=== PATIENT | female | born 1975 | race Two or more races ===

== ENCOUNTER 2020-05-23 05:40 | Day surgery (SDC) | payer OTHER ==
[~2020-05-23 05:40] MED LIST: ALDACTONE25 MG PO; NORVASC5 MG PO; SYNTHROID88 MCG PO
== END 2020-05-23 13:30 | disposition home or self-care (01) ==
LOC: CIR.AMB 05:40
PROVIDERS: ATTEND Obstetrics & Gynecology
DX: N84.0 Polyp of corpus uteri (principal)

== ENCOUNTER 2021-12-02 11:15 | Inpatient (IN) | payer OTHER ==
[~2021-12-02] VITALS: Ht 157.5 cm; Wt 57.2 kg
[2021-12-02] MEDS ORDERED: TOPROL XL25 M1 PO (13:47)
[2021-12-02] MEDS ORDERED: CHILDREN'S ASPI81 MG PO (13:48)
== END 2021-12-06 12:50 | disposition home or self-care (01) | DRG 743 ==
LOC: OB/GYN 12-04 06:00 → O/R 12-04 06:00 → OB/GYN 12-04 07:00
PROVIDERS: Surgery; ADMIT Obstetrics & Gynecology; ATTEND Obstetrics & Gynecology
PROC: 0UT5FZZ Resection of Right Fallopian Tube, Via Natural or Artificial Opening With Percutaneous Endoscopic Assistance (ICD-10-PCS; 2021-12-04)
PROC: 0UT9FZZ Resection of Uterus, Via Natural or Artificial Opening With Percutaneous Endoscopic Assistance (ICD-10-PCS; principal; 2021-12-04 07:00)
PROC: 0UT0FZZ Resection of Right Ovary, Via Natural or Artificial Opening With Percutaneous Endoscopic Assistance (ICD-10-PCS; 2021-12-04 07:00)
DX: N72 Inflammatory disease of cervix uteri (principal); D26.1 Other benign neoplasm of corpus uteri; N83.8 Other noninflammatory disorders of ovary, fallopian tube and broad ligament; N99.4 Postprocedural pelvic peritoneal adhesions; N73.6 Female pelvic peritoneal adhesions (postinfective); D50.0 Iron deficiency anemia secondary to blood loss (chronic); D64.9 Anemia, unspecified; N92.1 Excessive and frequent menstruation with irregular cycle; N94.5 Secondary dysmenorrhea; I10 Essential (primary) hypertension; E03.9 Hypothyroidism, unspecified